=== PATIENT | female | born 1945 | race Caucasian/White ===

== ENCOUNTER 2017-02-13 13:07 | Inpatient (IN) | payer MEDICARE, BC ==
[~2017-02-13] VITALS: Ht 170.2 cm; Wt 87.6 kg
[~2017-02-13 13:07] MED LIST: ALPR-475 PO; ANAS1TAB3 PO; ASPI-621 PO; ATOR10TA PO; CHOL500015 PO; ESCI10TA10 PO; MULT1TAB60 PO
[2017-02-13] MEDS ORDERED: LACTATED RINGERS 1,000 ML IV SCH (13:56)
[2017-02-13 14:28] VITALS: BP 124/77
[2017-02-13] MEDS ORDERED: BUPIVACAINE/PF-EPI 0.5% 1:200K ONE (15:27)
[2017-02-13] MEDS ORDERED: BACITRACIN 50,000 UNIT ONE (15:56)
[2017-02-13] MEDS ORDERED: CEFAZOLIN 1,000 MG ONE (15:56)
[2017-02-13] MEDS ORDERED: GENTAMICIN 80 MG/2 ML ONE (15:56)
[2017-02-13] MEDS ORDERED: PROPOFOL 10 MG/ML, 20ML ONE (16:05)
[2017-02-13] MEDS ORDERED: DEXAMETHASONE 4 MG/ML, 1ML ONE (16:05)
[2017-02-13] MEDS ORDERED: ONDANSETRON 2MG/ML, 2ML ONE (16:05)
[2017-02-13] MEDS ORDERED: FENTANYL PF 250 MCG/5ML ONE ×2 (16:07→17:18)
[2017-02-13] MEDS ORDERED: hydrALAzine 20 MG/ML, 1ML IV PRN (16:30)
[2017-02-13] MEDS ORDERED: PROMETHAZINE 25 MG/ML, 1ML IV PRN (16:30)
[2017-02-13] MEDS ORDERED: ACETAMINOPHEN 325 MG TABLET PO PRN (16:30)
[2017-02-13] MEDS ORDERED: OXYcodone 5 MG/5 ML ORAL.SOL UDC PO PRN (16:30)
[2017-02-13] MEDS ORDERED: METOPROLOL 1 MG/ML, 5ML IV PRN (16:30)
[2017-02-13] MEDS ORDERED: HYDROmorphone 2 MG/ML, 1ML ONE ×2 (17:18→18:09)
[2017-02-13] MEDS ORDERED: ACETAMINOPHEN 650 MG/20.3 ML UDC ONE (18:09)
[2017-02-13] MEDS ORDERED: FENTANYL PF 100 MCG/2ML ONE (18:09)
[2017-02-13] MEDS ORDERED: OXYcodone 5 MG/5 ML ORAL.SOL UDC ONE (18:10)
[2017-02-13] MEDS: HYDROmorphone 1 MG/ML, 1ML IV PRN ×5 (18:12→19:08)
[2017-02-13] MEDS: FENTANYL PF 100 MCG/2ML IV PRN ×2 (18:19→18:36)
[2017-02-13 20:01] VITALS: BP 167/90
[2017-02-13] MEDS ORDERED: DIPHENHYDRAMINE 25 MG CAPSULE PO PRN (21:00)
[2017-02-13] MEDS ORDERED: ONDANSETRON 4 MG TABLET PO PRN (21:00)
[2017-02-13] MEDS ORDERED: DIPHENHYDRAMINE 50 MG/ML, 1ML IVPush PRN (21:00)
[2017-02-13] MEDS ORDERED: ONDANSETRON 2MG/ML, 2ML IV PRN (21:00)
[2017-02-13] MEDS: MORPHINE SULFATE 4 MG/ML, 1ML IV PRN (21:15)
[2017-02-13] MEDS: SODIUM CHLORIDE 0.9% 1,000 ML IV SCH (22:26)
[2017-02-13] MEDS: FAMOTIDINE 20 MG TABLET PO SCH (22:26)
[2017-02-13] MEDS: CEFAZOLIN PMX 2GM/50ML 50 ML IVPB SCH (23:58)
[2017-02-14] VITALS: BP 122/67
[2017-02-14] MEDS: HYDROcodone/APAP 5/325 TABLET PO PRN ×3 (00:11→10:18)
[2017-02-14] MEDS: MORPHINE SULFATE 4 MG/ML, 1ML IV PRN (02:38)
[2017-02-14 03:08] VITALS: BP 127/68
[2017-02-14] MEDS: FAMOTIDINE 20 MG TABLET PO SCH (09:08)
[2017-02-14] MEDS: CEFAZOLIN PMX 2GM/50ML 50 ML IVPB SCH (09:08)
[2017-02-14] MEDS: SODIUM CHLORIDE 0.9% 1,000 ML IV SCH (09:09)
[2017-02-14] MEDS ORDERED: ENOXAPARIN 30 MG/0.3 ML SQ SCH (14:00)
== END 2017-02-14 17:00 | disposition home or self-care (01) | DRG 583 ==
LOC: OUT 13:07 → 4NOR 19:45 → OUT 21:35 → DCLOUNGE 02-14 16:41
PROVIDERS: ADMIT Surgery; ATTEND Surgery
PROC: 0HHU0NZ Insertion of Tissue Expander into Left Breast, Open Approach (ICD-10-PCS; principal; 2017-02-13 15:30)
PROC: 0HTU0ZZ Resection of Left Breast, Open Approach (ICD-10-PCS; 2017-02-13 15:30)
DX: C50.912 Malignant neoplasm of unspecified site of left female breast (principal); F32.9 Major depressive disorder, single episode, unspecified; F41.9 Anxiety disorder, unspecified; Z92.21 Personal history of antineoplastic chemotherapy
CPT/HCPCS: 36415; 82565; 88307; C1729; J0690; J1100; J1170; J2405; J2704; J3010; C1762; J1580; J7030; J7120

== ENCOUNTER 2017-07-01 13:35 | Day surgery (SDC) | payer MEDICARE, BC ==
[~2017-07-01] VITALS: Ht 170.2 cm; Wt 81.0 kg
[~2017-07-01 13:35] MED LIST changes: +BACITRACIN 50,000 UNIT ONE; +CEFAZOLIN 1,000 MG ONE; +EPINEPHRINE 1 MG/ML, 1ML ONE; +GENTAMICIN 80 MG/2 ML ONE; +ONDANSETRON 2MG/ML, 2ML ONE; +ROPivacaine/PF 0.2%, 10 ML ONE; +SODIUM BICARBONATE 1 MEQ/ML, 50ML VIAL ONE
[2017-07-01 13:46] VITALS: BP 128/72
[2017-07-01] MEDS ORDERED: LACTATED RINGERS 1,000 ML IV SCH (13:53)
[2017-07-01] MEDS ORDERED: LIDOCAINE-MPF 2% ,5ML ONE (13:58)
[2017-07-01] MEDS ORDERED: PLEASE ENTER HEIGHT AND WEIGHT MC SCH (14:00)
[2017-07-01] MEDS ORDERED: VITA1TAB19 PO (14:22)
[2017-07-01] MEDS ORDERED: CEFAZOLIN 1,000 MG ONE ×3 (14:53→16:51)
[2017-07-01] MEDS ORDERED: BACITRACIN 50,000 UNIT ONE (14:54)
[2017-07-01] MEDS ORDERED: GENTAMICIN 80 MG/2 ML ONE (14:54)
[2017-07-01] MEDS ORDERED: MIDAZOLAM 1 MG/ML, 2ML ONE (15:13)
[2017-07-01] MEDS ORDERED: FENTANYL PF 100 MCG/2ML ONE ×3 (15:14→18:37)
[2017-07-01] MEDS ORDERED: ROCURONIUM 10 MG/ML,10ML ONE (15:14)
[2017-07-01] MEDS ORDERED: PROPOFOL 10 MG/ML, 20ML ONE (15:14)
[2017-07-01] MEDS ORDERED: DEXAMETHASONE 4 MG/ML, 1ML ONE ×2 (16:51)
[2017-07-01] MEDS ORDERED: HYDROmorphone 1 MG/ML, 1ML ONE ×2 (17:23→18:02)
[2017-07-01] MEDS ORDERED: BUPIVACAINE/PF 0.5% ONE (17:27)
[2017-07-01] MEDS ORDERED: EPINEPHRINE 1 MG/ML, 1ML ONE (17:27)
[2017-07-01] MEDS ORDERED: FENTANYL PF 100 MCG/2ML IV PRN (17:30)
[2017-07-01] MEDS ORDERED: ONDANSETRON 2MG/ML, 2ML IVPush PRN ×2 (17:30→18:30)
[2017-07-01] MEDS ORDERED: hydrALAzine 20 MG/ML, 1ML IV PRN ×3 (17:30→20:30)
[2017-07-01] MEDS ORDERED: OXYcodone 5 MG/5 ML ORAL.SOL UDC PO PRN ×2 (17:30→18:30)
[2017-07-01] MEDS ORDERED: HYDROmorphone 1 MG/ML, 1ML IV PRN ×3 (17:30→20:30)
[2017-07-01] MEDS ORDERED: LORazepam 2 MG/ML, 1ML IVPush PRN (17:30)
[2017-07-01] MEDS ORDERED: METOPROLOL 1 MG/ML, 5ML IV PRN (17:30)
[2017-07-01] MEDS ORDERED: EPHEDRINE 50 MG/ML, 1ML IVPush PRN (17:30)
[2017-07-01] MEDS ORDERED: ACETAMINOPHEN 325 MG TABLET PO PRN ×2 (17:30→20:30)
[2017-07-01] MEDS ORDERED: LABETALOL 5MG/ML, 20ML IV PRN ×2 (17:30→18:30)
[2017-07-01] MEDS ORDERED: ALBUTEROL SULFATE 2.5 MG/3 ML NPPB PRN (17:30)
[2017-07-01] MEDS ORDERED: ACETAMINOPHEN 650 MG/20.3 ML UDC ONE (18:36)
[2017-07-01] MEDS ORDERED: OXYcodone 5 MG/5 ML ORAL.SOL UDC ONE (18:37)
[2017-07-01] MEDS: FENTANYL PF 100 MCG/2ML IV PRN ×2 (18:39→19:01)
[2017-07-01] MEDS ORDERED: LORazepam 2 MG/ML, 1ML ONE (18:48)
[2017-07-01] MEDS ORDERED: ONDANSETRON 2MG/ML, 2ML IV PRN (20:30)
[2017-07-01] MEDS ORDERED: ACETAMINOPHEN 650 MG SUPP PR PRN (20:30)
[2017-07-01] MEDS ORDERED: DIPHENHYDRAMINE 50 MG/ML, 1ML IV PRN (20:30)
[2017-07-01] MEDS ORDERED: DIPHENHYDRAMINE 25 MG CAPSULE PO PRN (20:30)
[2017-07-01] MEDS ORDERED: D5%-LACTATED RINGERS 1,000 ML IV SCH (20:30)
[2017-07-01] MEDS ORDERED: HYDROcodone/APAP 5/325 TABLET PO PRN (20:30)
[2017-07-02] MEDS ORDERED: ANASTROZOLE 1 MG TABLET PO SCH (09:00)
[2017-07-02] MEDS ORDERED: MULTIVITS,STRESS FORMULA 1 TABLET PO SCH (09:00)
[2017-07-02] MEDS ORDERED: CHOLECALCIFEROL 1,000 UNIT TABLET PO SCH (09:00)
[2017-07-02] MEDS ORDERED: CITALOPRAM 20 MG TABLET PO SCH (09:00)
[2017-07-02] MEDS ORDERED: MULTIVITAMIN 1 TABLET PO SCH (09:00)
== END 2017-07-01 21:10 | disposition home or self-care (01) ==
LOC: OR 13:35 → 4NOR 19:41 → OUT 21:10
PROVIDERS: ATTEND Plastic Surgery
DX: N65.1 Disproportion of reconstructed breast (principal); N65.0 Deformity of reconstructed breast; N64.81 Ptosis of breast; Z90.12 Acquired absence of left breast and nipple; Z85.3 Personal history of malignant neoplasm of breast; N64.89 Other specified disorders of breast; Z98.890 Other specified postprocedural states; Z96.641 Presence of right artificial hip joint; Z96.652 Presence of left artificial knee joint; Z90.710 Acquired absence of both cervix and uterus; Z79.82 Long term (current) use of aspirin
CPT/HCPCS: 11970; 19316; 93005; C1729; C1789; J0171; J0690; J1100; J1170; J1580; J2060; J2250; J2405; J2704; J3010; J3490; J2795

== ENCOUNTER → 2017-11-18 | Outpatient (CLI) | payer MEDICARE, BC ==
[~2017-11-18] MED LIST changes: -BACITRACIN 50,000 UNIT ONE; -CEFAZOLIN 1,000 MG ONE; -EPINEPHRINE 1 MG/ML, 1ML ONE; -GENTAMICIN 80 MG/2 ML ONE; -ONDANSETRON 2MG/ML, 2ML ONE; -ROPivacaine/PF 0.2%, 10 ML ONE; -SODIUM BICARBONATE 1 MEQ/ML, 50ML VIAL ONE; +VITA1TAB19 PO
== END ==
LOC: CVU 13:58
PROVIDERS: ATTEND Internal Medicine Hematology & Oncology
DX: I51.89 Other ill-defined heart diseases (principal); C50.412 Malignant neoplasm of upper-outer quadrant of left female breast
CPT/HCPCS: 93306

== ENCOUNTER → 2018-01-22 | Outpatient (CLI) | payer MEDICARE, BC ==
[~2018-01-22] MED LIST changes: +HYDR-3240 PO; +RIVA15TA PO
== END | disposition home or self-care (01) ==
LOC: PETCFH 13:30
PROVIDERS: ATTEND Internal Medicine Hematology & Oncology
DX: C83.33 Diffuse large B-cell lymphoma, intra-abdominal lymph nodes (principal); C50.412 Malignant neoplasm of upper-outer quadrant of left female breast; R59.0 Localized enlarged lymph nodes
CPT/HCPCS: 78815; A9552

== ENCOUNTER → 2018-04-09 | Outpatient (CLI) | payer MEDICARE, BC ==
[~2018-04-09] MED LIST changes: -ANAS1TAB3 PO; +ANAS1TAB49 PO
== END | disposition home or self-care (01) ==
LOC: PETCFH 09:45
PROVIDERS: ATTEND Internal Medicine Hematology & Oncology
DX: C83.33 Diffuse large B-cell lymphoma, intra-abdominal lymph nodes (principal); F17.200 Nicotine dependence, unspecified, uncomplicated; Z85.3 Personal history of malignant neoplasm of breast
CPT/HCPCS: 78815; A9552

== ENCOUNTER 2018-05-04 09:59 | Day surgery (SDC) | payer MEDICARE, BC ==
[~2018-05-04] VITALS: Ht 170.2 cm; Wt 84.9 kg
[2018-05-04] MEDS ORDERED: LIDOCAINE/PF 1%, 30ML ONE (10:39)
[2018-05-04] MEDS ORDERED: SODIUM CHLORIDE 0.9% 1,000 ML IV SCH (10:41)
[2018-05-04 10:44] VITALS: BP 118/58
[2018-05-04] MEDS ORDERED: RIVA15TA PO (10:44)
[2018-05-04] MEDS ORDERED: ESCI10TA10 PO (10:44)
[2018-05-04] MEDS ORDERED: FENTANYL PF 100 MCG/2ML ONE (11:24)
[2018-05-04] MEDS ORDERED: FLUMAZENIL 0.1 MG/1 ML, 5ML ONE (11:24)
[2018-05-04] MEDS ORDERED: MIDAZOLAM 1 MG/ML, 5ML ONE (11:24)
[2018-05-04] MEDS ORDERED: NALOXONE 1 MG/ML, 2ML ONE (11:24)
== END 2018-05-04 13:40 | disposition home or self-care (01) ==
LOC: OUT 09:59
PROVIDERS: ATTEND Internal Medicine Hematology & Oncology
DX: Z45.2 Encounter for adjustment and management of vascular access device (principal); C50.412 Malignant neoplasm of upper-outer quadrant of left female breast; C83.33 Diffuse large B-cell lymphoma, intra-abdominal lymph nodes; D70.1 Agranulocytosis secondary to cancer chemotherapy; F17.210 Nicotine dependence, cigarettes, uncomplicated; Z96.641 Presence of right artificial hip joint; Z96.652 Presence of left artificial knee joint; Z90.710 Acquired absence of both cervix and uterus; Z98.890 Other specified postprocedural states; Z90.12 Acquired absence of left breast and nipple
CPT/HCPCS: 36590; 77001; 99156; 99157; J2250; J3010; J7030; J3490; J2310

== ENCOUNTER → 2019-12-09 | Outpatient (CLI) | payer MEDICARE, BC ==
[~2019-12-09] MED LIST changes: -ALPR-475 PO; +ALPR0.5T7 PO; -ASPI-621 PO; +ASPI81TA45 PO; +GADOTERATE 10 MMOL/20 ML SYR ONE
== END | disposition home or self-care (01) ==
LOC: RAD 14:53
PROVIDERS: ATTEND Internal Medicine Hematology & Oncology
DX: C50.412 Malignant neoplasm of upper-outer quadrant of left female breast (principal); C83.33 Diffuse large B-cell lymphoma, intra-abdominal lymph nodes; M16.12 Unilateral primary osteoarthritis, left hip; M85.68 Other cyst of bone, other site; M25.452 Effusion, left hip; K57.30 Diverticulosis of large intestine without perforation or abscess without bleeding; Z96.642 Presence of left artificial hip joint
CPT/HCPCS: 73502; 73723; A9575

== ENCOUNTER → 2020-04-12 | Outpatient (CLI) | payer MEDICARE, BC ==
[~2020-04-12] MED LIST changes: -GADOTERATE 10 MMOL/20 ML SYR ONE; +MULT-449 PO; -MULT1TAB60 PO; +OMNIPAQUE 350 MG/ML, 100ML BOTTLE ONE
== END | disposition home or self-care (01) ==
LOC: CFH 12:29
PROVIDERS: ATTEND Internal Medicine Hematology & Oncology
DX: C50.412 Malignant neoplasm of upper-outer quadrant of left female breast (principal); C83.33 Diffuse large B-cell lymphoma, intra-abdominal lymph nodes; K57.30 Diverticulosis of large intestine without perforation or abscess without bleeding; J92.9 Pleural plaque without asbestos; R91.1 Solitary pulmonary nodule; R59.0 Localized enlarged lymph nodes
CPT/HCPCS: 71260; 74177; Q9967